=== PATIENT | male | born 1990 | race Caucasian/White ===

== ENCOUNTER 2016-12-15 17:21 | Emergency (ER) | payer SELFPAY ==
[2016-12-15 17:56] VITALS: BP 138/69
== END 2016-12-15 17:56 | disposition other institution (70) ==
LOC: ED 17:21
DX: S01.111A Laceration without foreign body of right eyelid and periocular area, initial encounter (principal); Z88.1 Allergy status to other antibiotic agents; X58.XXXA Exposure to other specified factors, initial encounter; Y93.89 Activity, other specified; Y92.89 Other specified places as the place of occurrence of the external cause; Y99.8 Other external cause status

== ENCOUNTER 2016-12-15 17:21 | Emergency (ER) | payer OTHER | END 2016-12-15 17:56 | disposition other institution (70) | LOC: ED 17:21 | DX: Z02.89 Encounter for other administrative examinations (principal) ==

== ENCOUNTER 2017-06-27 08:46 | Emergency (ER) | payer SELFPAY ==
[~2017-06-27] VITALS: Ht 185.4 cm; Wt 72.6 kg
[2017-06-27 09:06] VITALS: Ht 185.4 cm; Wt 72.6 kg
[2017-06-27 10:19] VITALS: BP 143/78
== END 2017-06-27 10:19 | disposition home or self-care (01) ==
LOC: ED 08:46
DX: K04.7 Periapical abscess without sinus (principal); Z88.1 Allergy status to other antibiotic agents

== ENCOUNTER 2017-09-15 18:17 | Emergency (ER) | payer MEDICAID ==
[~2017-09-15] VITALS: Ht 185.4 cm; Wt 73.9 kg
[2017-09-15 18:30] VITALS: Ht 185.4 cm; Wt 73.9 kg
[2017-09-15 20:33] VITALS: BP 128/87
== END 2017-09-15 20:33 | disposition home or self-care (01) ==
LOC: ED 18:17
DX: L03.011 Cellulitis of right finger (principal); Z88.8 Allergy status to other drugs, medicaments and biological substances

== ENCOUNTER 2017-11-01 04:41 | Emergency (ER) | payer MEDICAID ==
[~2017-11-01] VITALS: Ht 185.4 cm; Wt 73.0 kg
[2017-11-01 04:53] VITALS: Ht 185.4 cm; Wt 73.0 kg
[2017-11-01 05:38] VITALS: BP 143/95
== END 2017-11-01 05:38 | disposition home or self-care (01) ==
LOC: ED 04:41
DX: L02.01 Cutaneous abscess of face (principal); L03.115 Cellulitis of right lower limb; Z88.1 Allergy status to other antibiotic agents
CPT/HCPCS: J2001

== ENCOUNTER 2017-11-16 20:14 | Emergency (ER) | payer SELFPAY ==
[~2017-11-16] VITALS: Ht 172.7 cm; Wt 68.0 kg
[2017-11-16 20:24] VITALS: Ht 172.7 cm; Wt 68.0 kg
[2017-11-16 21:37] VITALS: BP 138/84
== END 2017-11-16 21:37 | disposition other institution (70) ==
LOC: ED 20:14
DX: S20.219A Contusion of unspecified front wall of thorax, initial encounter (principal); Z88.1 Allergy status to other antibiotic agents; W05.1XXA Fall from non-moving nonmotorized scooter, initial encounter; Y93.73 Activity, racquet and hand sports; Y92.488 Other paved roadways as the place of occurrence of the external cause; Y99.8 Other external cause status
CPT/HCPCS: Q0092

== ENCOUNTER 2017-11-16 20:14 | Emergency (ER) | payer OTHER | END 2017-11-16 21:37 | disposition other institution (70) | LOC: ED 20:14 | DX: Z02.89 Encounter for other administrative examinations (principal) ==

== ENCOUNTER 2018-01-07 14:15 | Emergency (ER) | payer OTHER | END 2018-01-07 16:29 | disposition other institution (70) | LOC: ED 14:15 | DX: Z02.89 Encounter for other administrative examinations (principal) ==

== ENCOUNTER 2018-01-07 14:15 | Emergency (ER) | payer SELFPAY ==
[~2018-01-07] VITALS: Ht 182.9 cm; Wt 72.6 kg
[2018-01-07 14:16] VITALS: BP 116/65; Ht 182.9 cm; Wt 72.6 kg
== END 2018-01-07 16:29 | disposition other institution (70) ==
LOC: ED 14:15
DX: S52.571A Other intraarticular fracture of lower end of right radius, initial encounter for closed fracture (principal); S61.213A Laceration without foreign body of left middle finger without damage to nail, initial encounter; L98.8 Other specified disorders of the skin and subcutaneous tissue; F15.10 Other stimulant abuse, uncomplicated; I10 Essential (primary) hypertension; Z88.1 Allergy status to other antibiotic agents; W45.8XXA Other foreign body or object entering through skin, initial encounter; Y93.89 Activity, other specified; Y92.89 Other specified places as the place of occurrence of the external cause; Y99.8 Other external cause status

== ENCOUNTER 2018-12-22 18:21 | Emergency (ER) | payer OTHER ==
[~2018-12-22] VITALS: Ht 185.4 cm; Wt 72.6 kg
[2018-12-22 18:24] VITALS: Ht 185.4 cm; Wt 72.6 kg
[2018-12-22 20:06] VITALS: BP 125/91
== END 2018-12-22 20:06 | disposition other institution (70) ==
LOC: ED 18:21
DX: Z02.89 Encounter for other administrative examinations (principal)